=== PATIENT | male | born 1950 | race Caucasian/White ===

== ENCOUNTER 2017-08-30 11:23 | Day surgery (SDC) | payer MEDICARE, OTHER ==
[2017-08-30] VITALS (8 sets, daily range): BP systolic 126–138; BP diastolic 72–86
[~2017-08-30] VITALS: Ht 175.3 cm; Wt 133.8 kg
[~2017-08-30 11:23] MED LIST: BENZ-49; DOCUMENT DATE & TIME OF BETA-BLOCKER PO ONE; DOXA2TAB6; HYDR-3964; HYDR25TA4; MELO-102; METO50TA16; ceFAZolin inj. 3,000 MG in dextrose 5%-water 100 ML IV ONE; cefazolin/dext.iso 2gm/50ml 50 ML IV ONE; famotidine 20mg tablet PO ONE; ringers solution, lacted 1,000 ML IV SCH
[2017-08-30] MEDS ORDERED: BUPIVAcaine/PF 2.5 mg/ml (0.25%) 30ml vial ONE (11:50)
[2017-08-30] MEDS ORDERED: epiNEPHrine 1 mg/ml inj ONE (11:50)
[2017-08-30] MEDS ORDERED: famotidine 20mg tablet PO ONE (12:05)
[2017-08-30 12:28] LABS: BASOPHILS % (AUTO) 0.3 % (0-1); EOSINOPHILS # (AUTO) 0.1 X10'3 (0-0.9); EOSINOPHILS % (AUTO) 1.9 % (0-6); LYMPHOCYTES # (AUTO) 1.1 X10'3 (1.1-4.8); LYMPHOCYTES % (AUTO) 18.5 % (21-51); MEAN CORPUSCULAR HEMOGLOBIN 33.1 PG (27.0-31.0); MEAN CORPUSCULAR HGB CONC 35.4 % (33.0-36.5); MEAN CORPUSCULAR VOLUME 93.6 FL (78-98); MEAN PLATELET VOLUME 9.5 FL (7.4-10.4); MONOCYTES # (AUTO) 0.6 X10'3 (0-0.9); MONOCYTES % (AUTO) 9.9 % (2-12); NEUTROPHILS # (AUTO) 4.2 X10'3 (1.8-7.7); NEUTROPHILS % (AUTO) 69.4 % (42-75); PRE OP HEMATOCRIT 35.1 % (42.0-52.0); PRE OP HEMOGLOBIN 12.4 g/dL (14.0-17.9); PRE OP PLATELET COUNT 120 X10'3 (140-440); RED BLOOD COUNT 3.75 X10'6 (4.70-6.10); RED CELL DISTRIBUTION WIDTH 16.3 % (11.5-14.5)
[2017-08-30] MEDS ORDERED: fentaNYL/PF 50MCG/1 ML 2ML syringe ONE (12:38)
[2017-08-30] MEDS ORDERED: midazolam 2 mg/2 ml injection ONE (12:38)
[2017-08-30] MEDS ORDERED: rocuronium 10mg/ml inj IV ONE (12:40)
[2017-08-30 12:47] LABS: ALBUMIN 3.1 G/DL (3.4-5.0); ALBUMIN/GLOBULIN RATIO 0.8 (1.1-1.5); ALKALINE PHOSPHATASE 72 IU/L (46-116); BLOOD UREA NITROGEN 18 MG/DL (7-18); BUN/CREATININE RATIO 16.2 (5.4-32.0); CALCIUM 9.4 MG/DL (8.5-10.1); CHLORIDE 102 MMOL/L (99-107); CREATININE 1.11 MG/DL (0.60-1.10); PRE OP ALT 33 U/L (30-65); PRE OP ANION GAP 13 (8-16); PRE OP AST 61 U/L (10-37); PRE OP BILIRUB, TOTAL 1.7 MG/DL (0.0-1.0); PRE OP GLUCOSE 111 MG/DL (70-104); PRE OP POTASSIUM 3.7 MMOL/L (3.4-5.1); PRE OP SODIUM 140 MMOL/L (135-145); TOTAL CARBON DIOXIDE 24.8 MMOL/L (24-32); TOTAL PROTEIN 6.9 G/DL (6.4-8.2); eGFR 66 ML/MIN
[2017-08-30] MEDS ORDERED: LIDOcaine 1% 30ml preserv. free vial ONE (13:04)
[2017-08-30] MEDS ORDERED: LIDOcaine 1%/PF (10mg/ml) 5ml vial ONE (13:22)
[2017-08-30] MEDS ORDERED: propofol inj 20 ML IV ONE (13:22)
[2017-08-30] MEDS ORDERED: ringers solution, lacted 1,000 ML IV ONE (13:41)
[2017-08-30] MEDS ORDERED: meperidine/PF 50mg/ml syringe IV PRN ×2 (13:45)
[2017-08-30] MEDS ORDERED: hydrALAZINE 20mg/ml inj. IV PRN (13:45)
[2017-08-30] MEDS ORDERED: morphine 4 MG/ML inj SYRINge IV PRN ×2 (13:45)
[2017-08-30] MEDS ORDERED: ondansetron/PF 4mg/2ml inj IV PRN (13:45)
[2017-08-30] MEDS ORDERED: labetalol 20mg/4ml (5mg/ml) syringe IV PRN (13:45)
[2017-08-30] MEDS ORDERED: meperidine/PF 50mg/ml syringe IV ONE (13:45)
== END 2017-08-30 14:40 | disposition home or self-care (01) ==
LOC: PAS 11:23
PROVIDERS: ATTEND Surgery
DX: C83.34 Diffuse large B-cell lymphoma, lymph nodes of axilla and upper limb (principal); I10 Essential (primary) hypertension; G89.29 Other chronic pain; M54.9 Dorsalgia, unspecified; E78.5 Hyperlipidemia, unspecified; E55.9 Vitamin D deficiency, unspecified; N52.9 Male erectile dysfunction, unspecified; E66.9 Obesity, unspecified; G47.33 Obstructive sleep apnea (adult) (pediatric); Z79.899 Other long term (current) drug therapy; Z91.030 Bee allergy status; Z98.890 Other specified postprocedural states; Z82.49 Family history of ischemic heart disease and other diseases of the circulatory system
CPT/HCPCS: 36415; 38525; 80053; 85025; 88341; 88342; 93005; J0171; J0690; J2001; J2175; J2250; J2405; J2704; J3010; J3490; J7060; J7120; 88305; 88360; A7000

== ENCOUNTER 2017-09-04 01:37 | Emergency (ER) | payer OTHER, MEDICARE ==
[~2017-09-04] VITALS: Ht 177.8 cm; Wt 131.8 kg
[~2017-09-04 01:37] MED LIST changes: -DOCUMENT DATE & TIME OF BETA-BLOCKER PO ONE; -ceFAZolin inj. 3,000 MG in dextrose 5%-water 100 ML IV ONE; -cefazolin/dext.iso 2gm/50ml 50 ML IV ONE; -famotidine 20mg tablet PO ONE; -ringers solution, lacted 1,000 ML IV SCH
[2017-09-04] MEDS ORDERED: iohexol 350MG/ML 100ml bottle IV ONE (02:06)
[2017-09-04 02:48] LABS: BASOPHILS % (AUTO) 0.1 % (0-1); EOSINOPHILS # (AUTO) 0.2 X10'3 (0-0.9); EOSINOPHILS % (AUTO) 2.3 % (0-6); HEMATOCRIT 36.1 % (42.0-52.0); HEMOGLOBIN 12.8 g/dl (14.0-17.9); LYMPHOCYTES # (AUTO) 0.9 X10'3 (1.1-4.8); LYMPHOCYTES % (AUTO) 12.2 % (21-51); MEAN CORPUSCULAR HEMOGLOBIN 33.7 PG (27.0-31.0); MEAN CORPUSCULAR HGB CONC 35.4 % (33.0-36.5); MEAN CORPUSCULAR VOLUME 95.2 FL (78-98); MONOCYTES # (AUTO) 0.7 X10'3 (0-0.9); MONOCYTES % (AUTO) 9.6 % (2-12); NEUTROPHILS # (AUTO) 5.6 X10'3 (1.8-7.7); NEUTROPHILS % (AUTO) 75.8 % (42-75); PLATELET COUNT 110 X10'3 (140-440); RED BLOOD COUNT 3.79 X10'6 (4.70-6.10); RED CELL DISTRIBUTION WIDTH 16.1 % (11.5-14.5); WHITE BLOOD COUNT 7.4 X10'3 (4.5-11.0)
[2017-09-04 02:50] LABS: INR 1.1 INR; PARTIAL THROMBOPLASTIN TIME 31 SECONDS (22-32); PROTHROMBIN TIME 11.5 SECONDS (9.0-12.0)
[2017-09-04] MEDS ORDERED: normal saline 1000ml 1,000 ML IV ONE (03:00)
[2017-09-04 03:33] LABS: ALANINE AMINOTRANSFERASE 33 U/L (12-78); ALBUMIN 3.1 G/DL (3.4-5.0); ALBUMIN/GLOBULIN RATIO 0.8 (1.1-1.5); ALKALINE PHOSPHATASE 77 IU/L (46-116); ANION GAP 13 (8-16); ASPARTATE AMINO TRANSFERASE 64 U/L (10-37); BILIRUBIN,TOTAL 1.4 MG/DL (0.1-1.0); BLOOD UREA NITROGEN 16 MG/DL (7-18); BUN/CREATININE RATIO 15.5 (5.4-32.0); CALCIUM 9.3 MG/DL (8.5-10.1); CHLORIDE 101 MMOL/L (99-107); CREATININE 1.03 MG/DL (0.60-1.10); GLUCOSE 107 MG/DL (70-104); POTASSIUM 4.2 MMOL/L (3.5-5.1); SODIUM 140 MMOL/L (135-145); TOTAL CARBON DIOXIDE 26.1 MMOL/L (24-32); TOTAL PROTEIN 6.9 G/DL (6.4-8.2); eGFR 72 ML/MIN
[2017-09-04] MEDS ORDERED: dexamethasone sod phosphate 10mg/ml inj IV STA ×2 (06:24→06:29)
[2017-09-04] MEDS ORDERED: ipratropium/albuterol 3ml nebule NEB ONE (06:30)
[2017-09-04] MEDS ORDERED: ondansetron/PF 4mg/2ml inj IV ONE (06:45)
[2017-09-04] MEDS ORDERED: ONDA4TAB9 PO (08:59)
[2017-09-04 09:47] VITALS: BP 117/74
== END 2017-09-04 12:55 | disposition home or self-care (01) ==
LOC: ER 01:37
DX: R06.02 Shortness of breath (principal); J90 Pleural effusion, not elsewhere classified; M79.89 Other specified soft tissue disorders; Z79.899 Other long term (current) drug therapy; Z85.118 Personal history of other malignant neoplasm of bronchus and lung
CPT/HCPCS: 36415; 71045; 71275; 80053; 83605; 84145; 84484; 85025; 85610; 85730; 87040; 93005; 93971; 96361; 96374; 96375; 99285; J1100; J2405; J7030; Q9967